=== PATIENT | male | born 2000 | race Caucasian/White ===

== ENCOUNTER 2020-01-19 23:00 | Emergency (ER) | payer MEDICAID ==
[2020-01-19] MEDS ORDERED: Sodium Chloride 0.9% 10 ML Syringe FLUSH PRN (23:32)
--- NOTE | 2020-01-19 23:38 | EDM.PDOC ---
ED HPI GENERAL MEDICAL PROBLEM - General Chief Complaint: General Stated Complaint: Pain and Nausea Time Seen by Provider: 01/19/20 23:32 Source of Information: Reports: Patient - History of Present Illness INITIAL COMMENTS - FREE TEXT/NARRATIVE: Patient comes emergency department today from home with really a myriad of rather perplexing complaints. Patient relates for the past week and a half it feels like his left shoulder is falling off his left hip is shooting off, his back is being twisted he cannot walk right. He has been trying some Tylenol without improvement. It is been slowly getting worse. He just feels like his body is all out of whack and twisted. He denies any recent falls trauma or injury. No fever no chills. No cough no congestion. No shortness of breath difficulty breathing or chest pain. No abdominal pain but he has not had a bowel movement for 3 days. 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 NO abd pain. No abdominal distention. He has had some nausea without vomiting. No flank pain. No hematuria dysuria or urinary frequency. He admits only to marijuana usage on a regular basis. He relates a lot of the pain in his hips shoulders and back started about a week ago when he started sleeping on a couch. His appetite is been okay when he has food although he was out of food for a couple of days. He has been drinking water somewhat he reports. Neck, Back, Hip, Shoulder Pain Score (Numeric/FACES): 10 - Related Data Allergies Allergy/AdvReac Type Severity Reaction Status Date / Time No Known Allergies Allergy Verified 01/19/20 23:16 Past Medical History Other HEENT History: see triage note Other Respiratory History: see triage note ED ROS GENERAL - Review of Systems Review Of Systems: Comprehensive ROS is negative, except as noted in HPI. ED EXAM, GENERAL - Physical Exam Exam: See Below Free Text/Narrative:: As the patient is sitting there he is really kind of tilted to the side with his left shoulder up and contorted his upper torso to the right but he is constantly moving twitching and bending. When he stands up he continues to stand very similarly with his right shoulder dropped his left shoulder up his left hip out. He continues with the twitching and movement. There is no obvious trauma. There is no bony deformity. There is no bruising swelling ecchymosis or other signs of trauma. He is nontender on palpation throughout the anterior and posterior thorax and abdomen. Exam Limited By: No Limitations General Appearance: Alert, WD/WN, Thin Eye Exam: Bilateral Eye: EOMI Ears: Normal External Exam, Normal Canal, Hearing Grossly Normal, Normal TMs Nose: Normal Inspection, Normal Mucosa Throat/Mouth: Normal Gums, Normal Voice, No Airway Compromise. No: Normal Inspection (Oral mucosa is very dry. ), Normal Lips (lips are dried and cracked. ) Head: Atraumatic, Normocephalic Neck: Normal Inspection, Supple, Non-Tender, Full Range of Motion Respiratory/Chest: No Respiratory Distress, Lungs Clear, Normal Breath Sounds, No Accessory Muscle Use, Chest Non-Tender Cardiovascular: Normal Peripheral Pulses, Regular Rate, Rhythm GI/Abdominal: Soft, Non-Tender, No Organomegaly, No Distention, No Abnormal Bruit, Abnormal Bowel Sounds (decreased bowel sounds throughout) (Male) Exam: Deferred Rectal (Males) Exam: Deferred Back Exam: Normal Inspection, Full Range of Motion Extremities: Normal Inspection, Normal Range of Motion, Non-Tender, No Pedal Edema, Normal Capillary Refill Neurological: Alert, Oriented, CN II-XII Intact, Normal Cognition, Normal Gait, No Motor/Sensory Deficits Psychiatric: Normal Affect, Normal Mood Skin Exam: Warm, Dry, Intact, Normal Color, No Rash Course - Vital Signs Last Recorded V/S: Last Vital Signs Temp 36.8 C 01/20/20 00:13 Pulse 87 01/20/20 00:13 Resp 16 01/20/20 00:13 BP 138/65 01/20/20 00:13 Pulse Ox 98 01/20/20 00:13 - Orders/Labs/Meds Orders: Active Orders 24 hr Category Date Time Status Sodium Chloride 0.9% [Saline Flush] Med 01/19/20 23:32 Active 10 ml FLUSH ASDIRECTED PRN Peripheral IV Insertion Adult [OM.PC] Stat Oth 01/19/20 23:32 Ordered Medication Orders Sodium Chloride (Saline Flush) 10 ml FLUSH ASDIRECTED PRN PRN Reason: Keep Vein Open Labs: Laboratory Tests 01/19/20 01/19/20 01/20/20 Range/Units 23:40 23:40 00:03 WBC 8.8 (4.0-10.0) x10^3/uL RBC 5.16 (4.5-6.0) x10^6/uL Hgb 15.6 (14.0-18.0) g/dL Hct 43.5 (40.0-52.0) % MCV 84.3 (78.0-93.0) fL MCH 30.2 (26.0-32.0) pg MCHC 35.9 (32.0-36.0) g/dL RDW Coeff of [place] 12.3 (10.0-15.0) % Plt Count 267 (130-400) x10^3/uL Neut % (Auto) 48.7 L (50.0-80.0) % Lymph % (Auto) 41.4 (25.0-50.0) % White % (Auto) 8.3 (2.0-11.0) % Eos % (Auto) 1.4 (0.0-4.0) % Baso % (Auto) 0.2 (0.2-1.2) % Sodium 140 (136-145) mmol/L Potassium 3.4 L (3.5-5.1) mmol/L Chloride 101 (98-107) mmol/L Carbon Dioxide 24 (21-32) mmol/L Anion Gap 18.4 (10-20) mmol/L BUN 8 (7-18) mg/dL Creatinine 1.0 (0.70-1.30) mg/dL Est Cr Clr Drug Dosing TNP Estimated GFR (MDRD) > 60 Glucose 112 H (74-106) mg/dL Calcium 9.4 (8.5-10.1) mg/dL Corrected Calcium 8.60 (8.5-10.1) mg/dL Total Bilirubin 0.8 (0.2-1.0) mg/dL AST 18 (15-37) U/L ALT 16 (16-63) U/L Alkaline Phosphatase 67 (46-116) U/L Creatine Kinase 171 (39-308) U/L Total Protein 8.2 (6.4-8.2) g/dL Albumin 5.0 (3.4-5.0) g/dL Globulin 3.2 Albumin/Globulin Ratio 1.56 Urine Color Dark yellow H (YELLOW) Urine Appearance Slightly cloudy H (CLEAR) Urine pH 6.0 (5.0-8.0) Ur Specific [place] 1.020 Urine Protein Negative (NEGATIVE) mg/dL Urine Glucose (UA) Negative (NEGATIVE) mg/dL Urine Ketones 40 H (NEGATIVE) mg/dL Urine Occult Blood Trace-intact H (NEGATIVE) Urine Nitrite Negative (NEGATIVE) Urine Bilirubin Negative (NEGATIVE) Urine Urobilinogen 0.2 (0.2) EU/dL Ur Leukocyte Esterase Negative (NEGATIVE) Urine RBC 0-5 (NOT SEEN) /HPF Urine WBC 0-5 (NOT SEEN) /HPF Ur Squamous Epith Cells Rare (NEGATIVE) /HPF Amorphous Sediment Few Urine Bacteria Few H (NEGATIVE) /HPF Urine Mucus Moderate H (NEGATIVE) /LPF Urine Opiates Screen (NEAGTIVE) Ur Buprenorphine Scrn (NEGATIVE) Ur Oxycodone Screen (NEGATIVE) Ur EDDP (Meth Metab) (NEGATIVE) Urine Methadone Screen (NEGATIVE) Ur Barbiturates Screen (NEGATIVE) Ur Tricyclics Screen (NEGATIVE) Ur Phencyclidine Scrn (NEGATIVE) Ur Amphetamine Screen (NEGATIVE) U Methamphetamines Scrn (NEGATIVE) Urine MDMA Screen (NEGATIVE) U Benzodiazepines Scrn (NEGATIVE) U Cocaine Metab Screen (NEGATIVE) U Marijuana (THC) Screen (NEGATIVE) 01/20/20 Range/Units 00:03 WBC (4.0-10.0) x10^3/uL RBC (4.5-6.0) x10^6/uL Hgb (14.0-18.0) g/dL Hct (40.0-52.0) % MCV (78.0-93.0) fL MCH (26.0-32.0) pg MCHC (32.0-36.0) g/dL RDW Coeff of [place] (10.0-15.0) % Plt Count (130-400) x10^3/uL Neut % (Auto) (50.0-80.0) % Lymph % (Auto) (25.0-50.0) % White % (Auto) (2.0-11.0) % Eos % (Auto) (0.0-4.0) % Baso % (Auto) (0.2-1.2) % Sodium (136-145) mmol/L Potassium (3.5-5.1) mmol/L Chloride (98-107) mmol/L Carbon Dioxide (21-32) mmol/L Anion Gap (10-20) mmol/L BUN (7-18) mg/dL Creatinine (0.70-1.30) mg/dL Est Cr Clr Drug Dosing Estimated GFR (MDRD) Glucose (74-106) mg/dL Calcium (8.5-10.1) mg/dL Corrected Calcium (8.5-10.1) mg/dL Total Bilirubin (0.2-1.0) mg/dL AST (15-37) U/L ALT (16-63) U/L Alkaline Phosphatase (46-116) U/L Creatine Kinase (39-308) U/L Total Protein (6.4-8.2) g/dL Albumin (3.4-5.0) g/dL Globulin Albumin/Globulin Ratio Urine Color (YELLOW) Urine Appearance (CLEAR) Urine pH (5.0-8.0) Ur Specific [place] Urine Protein (NEGATIVE) mg/dL Urine Glucose (UA) (NEGATIVE) mg/dL Urine Ketones (NEGATIVE) mg/dL Urine Occult Blood (NEGATIVE) Urine Nitrite (NEGATIVE) Urine Bilirubin (NEGATIVE) Urine Urobilinogen (0.2) EU/dL Ur Leukocyte Esterase (NEGATIVE) Urine RBC (NOT SEEN) /HPF Urine WBC (NOT SEEN) /HPF Ur Squamous Epith Cells (NEGATIVE) /HPF Amorphous Sediment Urine Bacteria (NEGATIVE) /HPF Urine Mucus (NEGATIVE) /LPF Urine Opiates Screen Negative (NEAGTIVE) Ur Buprenorphine Scrn Negative (NEGATIVE) Ur Oxycodone Screen Negative (NEGATIVE) Ur EDDP (Meth Metab) Negative (NEGATIVE) Urine Methadone Screen Negative (NEGATIVE) Ur Barbiturates Screen Negative (NEGATIVE) Ur Tricyclics Screen Negative (NEGATIVE) Ur Phencyclidine Scrn Negative (NEGATIVE) Ur Amphetamine Screen Positive H (NEGATIVE) U Methamphetamines Scrn Positive H (NEGATIVE) Urine MDMA Screen Negative (NEGATIVE) U Benzodiazepines Scrn Negative (NEGATIVE) U Cocaine Metab Screen Negative (NEGATIVE) U Marijuana (THC) Screen Positive H (NEGATIVE) Meds: Medications Generic Name Dose Route Start Last Admin Trade Name Freq PRN Reason Stop Dose Admin Sodium Chloride 10 ml 01/19/20 23:32 Saline Flush FLUSH ASDIRECTED PRN Keep Vein Open Discontinued Medications Generic Name Dose Route Start Last Admin Trade Name Freq PRN Reason Stop Dose Admin Lactated Ringer's 1,000 mls @ 999 mls/hr 01/19/20 23:32 01/19/20 23:40 Ringers, Lactated IV 01/20/20 00:32 999 mls/hr ONETIME ONE Administration Ketorolac Tromethamine 30 mg 01/19/20 23:32 01/19/20 23:55 Toradol IVPUSH 01/19/20 23:33 30 mg ONETIME ONE Administration Ondansetron HCl 4 mg 01/19/20 23:32 01/19/20 23:50 Zofran IV 01/19/20 23:33 4 mg ONETIME ONE Administration Orphenadrine Citrate 60 mg 01/19/20 23:32 01/19/20 23:53 Norflex IV 01/19/20 23:33 60 mg NOW STA Administration - Re-Assessments/Exams Free Text/Narrative Re-Assessment/Exam: 01/20/20 01:06 The LR 1 L wide open. Ketorolac 30 mg IV push. Zofran 4 mg IV push Norflex 60 mg IV push. As muscle spasms pain and nausea resolved with the above therapy. Laboratory evaluation is rather unremarkable other than a positive for amphetamine and methamphetamine and THC in his urine. He does admit although he did not admit initially on arrival but he does admit at this time that he used methamphetamine a couple of days ago as well as a week ago. Led to him that his constipation could be related to his methamphetamine abuse. As well as his exaggerated physical movement. His muscle complaints that he is having could be due to him sleeping on the couch and is being accentuated by the stimulant of the methamphetamine. Although at this time there is no emergent concerns at this time. WE discussed the dangers of recreational drug usage. FOllow up with PCP if continued problems with the muscle spasms. 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 He is comfortable with this plan and his questions answered. Departure - Departure Time of Disposition: 00:45 Disposition: Home, Self-Care 01 Clinical Impression: Methamphetamine abuse, Muscle spasm Constipation Qualifiers: Constipation type: unspecified constipation type Qualified Code(s): K59.00 - Constipation, unspecified - Discharge Information *PRESCRIPTION DRUG MONITORING PROGRAM REVIEWED*: Not Applicable *COPY OF PRESCRIPTION DRUG MONITORING REPORT IN PATIENT SARWAT: Not Applicable Instructions: Muscle Cramps and Spasms, [id number], Stimulant Use Disorder- Amphetamines, Constipation, Adult, [id number] Referrals: PCP,None [Primary Care Provider] - Forms: ED Department Discharge Additional Instructions: Please stop using recreational drugs. You never know what you are getting really in the product. For the constipation. Lots of fluids daily, Miralax 2 capfuls everyday until resolution of the anal fissure. If not having pudding type bowel movement increase by a capful every 2 days, day 4-3 capfuls etc. Do this until the resolution of the constipation and the anal fissure. Tylenol and or Ibuprofen as needed for pain. See PCP in the next week for complaints of the chronic left shoulder pain. Ice or heat to the muscles spasms which ever works best for you. Reach out to the human service [place] if you are interested in assistance with your substance abuse. Return to the ED if new or worsening symptoms. Sepsis Event Note - Focused Exam Vital Signs: Vital Signs Temp Pulse Resp BP Pulse Ox 01/20/20 00:13 36.8 C 87 16 138/65 98 Date Exam was Performed: 01/20/20 Time Exam was Performed: 00:43 - My Orders Last 24 Hours: My Active Orders 01/19/20 23:32 Sodium Chloride 0.9% [Saline Flush] 10 ml FLUSH ASDIRECTED PRN Peripheral IV Insertion Adult [OM.PC] Stat - Assessment/Plan Last 24 Hours: My Active Orders 01/19/20 23:32 Sodium Chloride 0.9% [Saline Flush] 10 ml FLUSH ASDIRECTED PRN Peripheral IV Insertion Adult [OM.PC] Stat Assessment:: Muscle spasms could be side effect of methamphetamine. Chronic constipation Methamphetamine abuse anal fissure. Plan: Please stop using recreational drugs. You never know what you are getting really in the product. For the constipation. Lots of fluids daily, Miralax 2 capfuls everyday until resolution of the anal fissure. If not having pudding type bowel movement increase by a capful every 2 days, day 4-3 capfuls etc. Do this until the resolution of the constipation and the anal fissure. Tylenol and or Ibuprofen as needed for pain. See PCP in the next week for complaints of the chronic left shoulder pain. Ice or heat to the muscles spasms which ever works best for you. Reach out to the human service center if you are interested in assistance with your substance abuse. Return to the ED if new or worsening symptoms.
[2020-01-19] MEDS: Lactated Ringers 1,000 ML IV ONE (23:40)
[2020-01-19] MEDS: Ondansetron 4 MG/2 ML SDV IV ONE (23:50)
[2020-01-19] MEDS: Ketorolac 30 MG/ML SDV IVPUSH ONE (23:55)
[2020-01-20 00:14] VITALS: BP 138/65; PULSE 87
[2020-01-20 00:17] LABS: BARBITURATE SCREEN,URINE NEGATIVE (NEGATIVE); BENZODIAZEPINES SCREEN,URINE NEGATIVE (NEGATIVE); EDDP,URINE SCREEN NEGATIVE (NEGATIVE); METHAMPHETAMINE SCREEN, URINE POSITIVE (NEGATIVE); TCA SCREEN,URINE NEGATIVE (NEGATIVE); THC SCREEN,URINE 50 NG/ML POSITIVE (NEGATIVE)
[2020-01-20 00:18] LABS: CHLORIDE,CL 101 mmol/L (98-107); SODIUM,NA 140 mmol/L (136-145)
[2020-01-20 00:19] LABS: ANION GAP 18.4 mmol/L (10-20)
[2020-01-20] MEDS: Polyethylene Glycol 3350 Powder 17 GM Packet PO ONE ×2 (01:11→01:34)
== END 2020-01-20 01:29 | disposition home or self-care (01) ==
LOC: VM.ED 23:00
DX: K59.00 Constipation, unspecified (principal); F15.10 Other stimulant abuse, uncomplicated; M62.838 Other muscle spasm
CPT/HCPCS: 36415; 80053; 80305-QW; 81001; 82550; 85025; 96374; 96375; 99283-25; 99283-GF; A9270-GY; J1885; J2360; J2405; J7120